=== PATIENT | female | born 2000 | race African-American/Black ===

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

== ENCOUNTER 2020-08-04 21:13 | Emergency (ER) | payer OTHER ==
[2020-08-04 21:30] VITALS: BMI 29.2
[2020-08-04] MEDS ORDERED: SODIUM CHLORIDE 0.9% 500 ML INFUS.BAG IV ONE (22:31)
[2020-08-04] MEDS ORDERED: ACTIVATED CHARCOAL 260 MG CAPSULE PO ONE (22:34)
[2020-08-04 22:37] LABS: BASO % 1.4 % (0-2.0); EOS % 4.8 % (0-4.5); HEMATOCRIT 36.8 % (32.4-45.2); HEMOGLOBIN 12.2 GM/dL (10.7-15.3); LYMPH % 32.1 % (8-40); MCH 26.6 pg (25.7-33.7); MCHC 33.3 g/dl (32.0-36.0); MEAN CELL VOLUME 79.9 fl (80-96); MEAN PLT VOLUME 8.7 fl (7.5-11.1); MONO % 7.5 % (3.8-10.2); NEUT % 54.2 % (42.8-82.8); PLATELET COUNT 320 K/MM3 (134-434); RBC 4.61 M/mm3 (3.60-5.2); RDW 13.5 % (11.6-15.6); WHITE BLOOD COUNT 7.4 K/mm3 (4.0-10.0)
[2020-08-04] MEDS ORDERED: CHARCOAL/SORBITOL SOLUTION 25 GM/120 ML BTL ONE (22:48)
[2020-08-04] MEDS ORDERED: CHARCOAL/SORBITOL SOLUTION 25 GM/120 ML BTL PO ONE (22:49)
[2020-08-04 22:51] LABS: INR 1.2 (0.83-1.09); PROTHROMBIN TIME (PATIENT) 14.5 SEC (9.7-13.0)
[2020-08-04 22:53] LABS: CHLORIDE 107 mmol/L (98-107); SODIUM 140 mmol/L (136-145)
[2020-08-04 22:54] LABS: ACTIVATED PTT 30.7 SECONDS (25.2-36.5)
[2020-08-04 22:55] LABS: ALBUMIN 4.1 g/dl (3.4-5.0); ANION GAP 11 MMOL/L (8-16); CALCIUM 9.6 mg/dL (8.5-10.1); CO2 21 mmol/L (21-32); MAGNESIUM 2.1 mg/dL (1.8-2.4)
[2020-08-04 22:56] LABS: GLUCOSE,RANDOM 79 mg/dL (74-106)
[2020-08-04 22:58] LABS: CREATININE 0.6 mg/dL (0.55-1.3); SGOT/AST 12 U/L (15-37); SGPT/ALT 14 U/L (13-61)
[2020-08-04 23:00] LABS: BILIRUBIN,TOTAL 0.3 mg/dL (0.2-1); TOT PROT 7.7 g/dl (6.4-8.2)
[2020-08-04 23:01] LABS: ALK PHOS 60 U/L (45-117)
[2020-08-04] MEDS ORDERED: ONDANSETRON 4 MG/2 ML VIAL IVPUSH ONE ×2 (23:02→23:03)
[2020-08-04] MEDS ORDERED: ONDANSETRON 4 MG/2 ML VIAL ONE (23:03)
[2020-08-05 02:45] LABS: POTASSIUM 3.6 mmol/L (3.5-5.1)
[2020-08-05 02:46] LABS: BLOOD UREA NITROGEN 7.9 mg/dL (7-18); CALCIUM 9.2 mg/dL (8.5-10.1)
[2020-08-05 02:50] LABS: CREATININE 0.5 mg/dL (0.55-1.3)
[2020-08-05 03:26] LABS: VENOUS O2 SATURATION 63.7 % (70-80); VENOUS PCO2 39.8 mmHg (38-52); VENOUS PH 7.363 (7.310-7.410)
[2020-08-05 07:13] VITALS: BP 102/62; PULSE 85; TEMP 98.2
[2020-08-05 08:31] LABS: PH,URINE 5.5 (5.0-8.0); URINE APPEARANCE CLEAR; URINE BILIRUBIN NEGATIVE (NEGATIVE); URINE COLOR YELLOW; URINE GLUCOSE (UA) NEGATIVE (NEGATIVE); URINE KETONE 1+ (NEGATIVE); URINE LEUK ESTERASE NEGATIVE (NEGATIVE); URINE NITRITE NEGATIVE (NEGATIVE); URINE PROTEIN NEGATIVE (NEGATIVE)
[2020-08-05 08:36] LABS: URINE BARBITURATES NEGATIVE ng/ml (CUTOFF=200)
[2020-08-05 08:37] LABS: METHADONE, UR NEGATIVE ng/ml (CUTOFF=300); PHENCYCLIDINE,URINE NEGATIVE ng/ml (CUTOFF=25)
[2020-08-05 08:38] LABS: COCAINE, UR NEGATIVE ng/ml (CUTOFF=300); OPIATES, URI NEGATIVE ng/ml (CUTOFF=300); URINE AMPHETAMINES NEGATIVE ng/ml (CUTOFF=500); URINE BENZODIAZEPINES NEGATIVE ng/ml (CUTOFF=200)
[2020-08-05 08:39] LABS: EPI CELLS >36 /uL (0-25.1); HYALINE CASTS 4 /uL (0-3.1); URINE BACTERIA 711 /uL (0-1359); URINE RBC 9 /uL (0-23.9); URINE WBC 24 /uL (0-25.8)
== END 2020-08-05 12:14 | disposition home or self-care (01) ==
LOC: JER 21:13
PROC: 3E033GC Introduction of Other Therapeutic Substance into Peripheral Vein, Percutaneous Approach (ICD-10-PCS; principal; 2020-08-04)
DX: T50.902A Poisoning by unspecified drugs, medicaments and biological substances, intentional self-harm, initial encounter (principal); R45.851 Suicidal ideations
CPT/HCPCS: 36415; 76801-TC; 80048; 80053; 80307; 81003; 82803; 83735; 84443; 84702; 84703; 85025; 85610; 85730; 93005; 93010; 99285-25; C9803; U0003

== ENCOUNTER 2020-09-16 21:48 | Emergency (ER) | payer OTHER ==
[2020-09-16 22:19] VITALS: TEMP 98.4; BMI 32.3
[2020-09-16] MEDS ORDERED: SODIUM CHLORIDE 1,000 ML IV ONE (22:21)
[2020-09-16 22:37] LABS: BASO % 0.8 % (0-2.0); EOS % 8.2 % (0-4.5); HEMOGLOBIN 11.5 GM/dL (10.7-15.3); MCH 26.5 pg (25.7-33.7); MCHC 32.9 g/dl (32.0-36.0); MEAN CELL VOLUME 80.7 fl (80-96); MEAN PLT VOLUME 8.7 fl (7.5-11.1); MONO % 6.8 % (3.8-10.2); NEUT % 60.2 % (42.8-82.8); PLATELET COUNT 334 K/MM3 (134-434); RBC 4.33 M/mm3 (3.60-5.2); RDW 14.3 % (11.6-15.6); WHITE BLOOD COUNT 5.9 K/mm3 (4.0-10.0)
[2020-09-16 22:45] LABS: VENOUS BASE EXCESS -1.6 mmol/L (-2-2); VENOUS O2 SATURATION 89.6 % (70-80); VENOUS PH 7.405 (7.310-7.410)
[2020-09-16 22:47] LABS: CHLORIDE 107 mmol/L (98-107); POTASSIUM 3.5 mmol/L (3.5-5.1); SODIUM 139 mmol/L (136-145)
[2020-09-16 22:48] LABS: CALCIUM 9.2 mg/dL (8.5-10.1)
[2020-09-16 22:49] LABS: ALBUMIN 3.8 g/dl (3.4-5.0); ANION GAP 7 MMOL/L (8-16); BLOOD UREA NITROGEN 11.6 mg/dL (7-18); CO2 24 mmol/L (21-32); GLUCOSE,RANDOM 129 mg/dL (74-106); MAGNESIUM 2.3 mg/dL (1.8-2.4)
[2020-09-16 22:52] LABS: CREATININE 0.8 mg/dL (0.55-1.3); SGOT/AST 12 U/L (15-37); SGPT/ALT 16 U/L (13-61)
[2020-09-16 22:53] LABS: BILIRUBIN,TOTAL 0.2 mg/dL (0.2-1)
[2020-09-16 22:54] LABS: ALK PHOS 54 U/L (45-117); TOT PROT 7.5 g/dl (6.4-8.2)
[2020-09-17 02:36] LABS: PHENCYCLIDINE,URINE NEGATIVE ng/ml (CUTOFF=25)
[2020-09-17 02:41] LABS: EPI CELLS >36 /uL (0-25.1); HYALINE CASTS 3 /uL (0-3.1); URINE APPEARANCE CLEAR; URINE BACTERIA 567 /uL (0-1359); URINE BILIRUBIN NEGATIVE (NEGATIVE); URINE COLOR YELLOW; URINE GLUCOSE (UA) NEGATIVE (NEGATIVE); URINE KETONE NEGATIVE (NEGATIVE); URINE LEUK ESTERASE TRACE (NEGATIVE); URINE NITRITE NEGATIVE (NEGATIVE); URINE PROTEIN NEGATIVE (NEGATIVE); URINE RBC 3 /uL (0-23.9); URINE WBC 48 /uL (0-25.8)
[2020-09-17 02:46] LABS: COCAINE, UR NEGATIVE ng/ml (CUTOFF=300); METHADONE, UR NEGATIVE ng/ml (CUTOFF=300); OPIATES, URI NEGATIVE ng/ml (CUTOFF=300); URINE AMPHETAMINES NEGATIVE ng/ml (CUTOFF=500); URINE BARBITURATES NEGATIVE ng/ml (CUTOFF=200); URINE BENZODIAZEPINES POSITIVE ng/ml (CUTOFF=200)
[2020-09-17 05:00] VITALS: BP 114/75; PULSE 86
== END 2020-09-17 05:07 | disposition home or self-care (01) ==
LOC: JER 21:48
PROC: 3E0337Z Introduction of Electrolytic and Water Balance Substance into Peripheral Vein, Percutaneous Approach (ICD-10-PCS; principal; 2020-09-16)
DX: R25.1 Tremor, unspecified (principal); R55 Syncope and collapse
CPT/HCPCS: 36415; 70450-TC; 76801-TC; 80053; 80307; 81003; 82803; 82962; 83735; 84702; 84703; 85025; 86850; 86900; 86901; 93005; 93010; 99285-25; C9803; U0003; U0005

== ENCOUNTER 2020-10-01 04:48 | Emergency (ER) | payer OTHER ==
[2020-10-01 05:05] VITALS: BMI 26.6
[2020-10-01] MEDS ORDERED: levETIRAcetam 500 MG/5 ML INJECTION VIAL IVPB ONE ×2 (05:39→05:50)
[2020-10-01 05:51] LABS: HEMATOCRIT 32.8 % (32.4-45.2); LYMPH % 36.9 % (8-40); MCH 26.9 pg (25.7-33.7); MCHC 33.7 g/dl (32.0-36.0); MEAN CELL VOLUME 79.8 fl (80-96); MEAN PLT VOLUME 7.8 fl (7.5-11.1); NEUT % 41.1 % (42.8-82.8); PLATELET COUNT 322 K/MM3 (134-434); RBC 4.11 M/mm3 (3.60-5.2); RDW 13.8 % (11.6-15.6); WHITE BLOOD COUNT 6.4 K/mm3 (4.0-10.0)
[2020-10-01 06:10] LABS: CHLORIDE 105 mmol/L (98-107); SODIUM 138 mmol/L (136-145)
[2020-10-01 06:14] LABS: ALBUMIN 3.4 g/dl (3.4-5.0); ANION GAP 5 MMOL/L (8-16); BLOOD UREA NITROGEN 14.6 mg/dL (7-18); CO2 28 mmol/L (21-32); GLUCOSE,RANDOM 102 mg/dL (74-106)
[2020-10-01 06:17] LABS: BILIRUBIN,TOTAL 0.2 mg/dL (0.2-1); CREATININE 0.7 mg/dL (0.55-1.3); SGOT/AST 10 U/L (15-37); SGPT/ALT 15 U/L (13-61); TOT PROT 6.8 g/dl (6.4-8.2)
[2020-10-01 06:19] LABS: ALK PHOS 60 U/L (45-117)
[2020-10-01] MEDS ORDERED: MAGNESIUM SULF 50% (8.12 MEQ/2 ML-1 GM VIAL) IVPB ONE (06:23)
[2020-10-01] MEDS ORDERED: POTASSIUM CHLORIDE TABS 20 MEQ TABLET.ER (FP) PO ONE ×2 (06:23→10:04)
[2020-10-01] MEDS ORDERED: MAGNESIUM SULFATE IN WATER 2 GM/50 ML IVPB IVPB ONE (06:34)
[2020-10-01] MEDS ORDERED: DIVALPROEX SODIUM 125 MG TABLET E.C. ONE (10:04)
[2020-10-01] MEDS ORDERED: VALPROATE SODIUM 250 MG/5 ML UNIT DOSE CUP PO ONE (10:45)
[2020-10-01 10:48] VITALS: BP 103/50; PULSE 78; TEMP 98
== END 2020-10-01 10:35 | disposition home or self-care (01) ==
LOC: JER 04:48
PROC: 3E033GC Introduction of Other Therapeutic Substance into Peripheral Vein, Percutaneous Approach (ICD-10-PCS; principal; 2020-10-01)
PROC: 3E033GC Introduction of Other Therapeutic Substance into Peripheral Vein, Percutaneous Approach (ICD-10-PCS; 2020-10-01)
DX: G40.89 Other seizures (principal)
CPT/HCPCS: 36415; 70450-TC; 80053; 80307; 84702; 85025; 93005; 93010; 99285-25

== ENCOUNTER 2020-10-18 13:26 | Emergency (ER) | payer OTHER ==
[2020-10-18 13:43] VITALS: BP 140/87; PULSE 116; TEMP 98.7; BMI 33.3
[2020-10-18] MEDS ORDERED: DEXAMETHASONE LIQUID 0.5 MG/5 ML PO ONE (14:13)
[2020-10-18] MEDS ORDERED: PENICILLIN G BENZATHINE 1,200,000 UNIT/2 ML PFS IM ONE ×2 (14:13→14:42)
[2020-10-18] MEDS ORDERED: DEXAMETHASONE SOD PHOSPHATE 10 MG/1 ML VIAL ONE (14:42)
== END 2020-10-18 15:40 | disposition home or self-care (01) ==
LOC: JER 13:26
DX: J02.9 Acute pharyngitis, unspecified (principal)
CPT/HCPCS: 99284-25

== ENCOUNTER 2021-08-21 13:16 | Emergency (ER) | payer OTHER ==
[2021-08-21 13:28] VITALS: BP 114/65; PULSE 107; TEMP 97.8; BMI 23.9
[2021-08-21] MEDS ORDERED: ACETAMINOPHEN 500 MG TABLET (FP) PO ONE (14:04)
[2021-08-21] MEDS ORDERED: ACETAMINOPHEN 500 MG TABLET (FP) ONE (14:06)
[2021-08-21 15:35] LABS: HCG,QUALITATIVE URINE Negative
[2021-08-21 15:37] LABS: EPI CELLS 20 /uL (0-25.1); HYALINE CASTS 17 /uL (0-3.1); PH,URINE 5.5 (5.0-8.0); URINE APPEARANCE CLOUDY; URINE BACTERIA >9,000 /uL (0-1359); URINE BILIRUBIN NEGATIVE (NEGATIVE); URINE COLOR YELLOW; URINE GLUCOSE (UA) NEGATIVE (NEGATIVE); URINE KETONE TRACE (NEGATIVE); URINE LEUK ESTERASE 1+ (NEGATIVE); URINE NITRITE NEGATIVE (NEGATIVE); URINE PROTEIN TRACE (NEGATIVE); URINE RBC 13 /uL (0-23.9); URINE UROBILINOGEN 0.2 mg/dL (0.2-1.0); URINE WBC 315 /uL (0-25.8)
== END 2021-08-21 17:18 | disposition home or self-care (01) ==
LOC: JERFT 13:16
DX: N30.90 Cystitis, unspecified without hematuria (principal)
CPT/HCPCS: 36415; 76830-TC; 81003; 84703; 87086; 87186; 87491; 87591; 99284-25

== ENCOUNTER 2022-08-11 08:27 | Emergency (ER) | payer OTHER ==
[2022-08-11 09:04] VITALS: BMI 27.4
[2022-08-11] MEDS ORDERED: ONDANSETRON 4 MG TABLET PO ONE ×2 (09:46→09:58)
[2022-08-11] MEDS ORDERED: predniSONE 20 MG TABLET (UD) PO ONE (09:47)
[2022-08-11] MEDS ORDERED: ALBUTEROL SO4 2.5/IPRATROPIUM 0.5 INH SOL 3 ML VIAL.NEB. NEB ONE ×2 (09:47→09:58)
[2022-08-11] MEDS ORDERED: predniSONE 20 MG TABLET (UD) ONE (09:58)
[2022-08-11] MEDS ORDERED: ACETAMINOPHEN 500 MG TABLET (FP) PO ONE (11:01)
[2022-08-11] MEDS ORDERED: ACETAMINOPHEN 500 MG TABLET (FP) ONE (11:18)
[2022-08-11 11:38] VITALS: BP 123/78; PULSE 99; RESP 20; TEMP 98.7
== END 2022-08-11 11:38 | disposition home or self-care (01) ==
LOC: JER 08:27
PROC: 3E0F7GC Introduction of Other Therapeutic Substance into Respiratory Tract, Via Natural or Artificial Opening (ICD-10-PCS; principal; 2022-08-11)
DX: J45.901 Unspecified asthma with (acute) exacerbation (principal); R11.0 Nausea
CPT/HCPCS: 71046-TC-FY; 99283-25

== ENCOUNTER 2023-01-18 01:00 | Emergency (ER) | payer OTHER ==
[2023-01-18 01:09] VITALS: BMI 32.9
[2023-01-18] MEDS ORDERED: DEXAMETHASONE SOD PHOSPHATE 10 MG/1 ML VIAL PO ONE (02:00)
[2023-01-18] MEDS ORDERED: ACETAMINOPHEN 325 MG TABLET (FP) PO ONE (02:00)
[2023-01-18] MEDS ORDERED: DEXAMETHASONE SOD PHOSPHATE 10 MG/1 ML VIAL ONE (02:21)
[2023-01-18] MEDS ORDERED: ACETAMINOPHEN 325 MG TABLET (FP) ONE (02:22)
[2023-01-18] MEDS ORDERED: LACTATED RINGERS SOLUTION 1000 ML INFUS.BAG IV ONE (02:26)
[2023-01-18 02:44] LABS: THROAT:GRP A STREP NOT DETECTED (NOTDETECTED)
[2023-01-18 03:35] LABS: EOS % 11.5 % (0-4.5); HEMATOCRIT 37.9 % (32.4-45.2); HEMOGLOBIN 12.6 GM/dL (10.7-15.3); LYMPH % 49.6 % (8-40); MCH 26.6 pg (25.7-33.7); MCHC 33.3 g/dl (32.0-36.0); MEAN PLT VOLUME 8.4 fl (7.5-11.1); MONO % 10.2 % (3.8-10.2); NEUT % 27.7 % (42.8-82.8); PLATELET COUNT 353 10^3/uL (134-434); RBC 4.74 M/mm3 (3.60-5.2); RDW 14.2 % (11.6-15.6); WHITE BLOOD COUNT 7.5 K/mm3 (4.0-10.0)
[2023-01-18 03:43] LABS: POTASSIUM 5.3 mmol/L (3.5-5.1)
[2023-01-18 03:45] LABS: BLOOD UREA NITROGEN 16.3 mg/dL (7-18); CALCIUM 8.6 mg/dL (8.5-10.1)
[2023-01-18 03:46] LABS: ALBUMIN 3.6 g/dl (3.4-5.0)
[2023-01-18 03:48] LABS: CREATININE 0.7 mg/dL (0.55-1.3)
[2023-01-18 03:50] LABS: TOT PROT 7.3 g/dl (6.4-8.2)
[2023-01-18 04:02] LABS: BILIRUBIN,TOTAL 0.2 mg/dL (0.2-1)
[2023-01-18 06:22] VITALS: BP 113/60; PULSE 86; RESP 18; TEMP 98.7
== END 2023-01-18 06:21 | disposition home or self-care (01) ==
LOC: JER 01:00
DX: R13.10 Dysphagia, unspecified (principal)
CPT/HCPCS: 0241U-QW; 36415; 70491-TC; 80053; 84703; 85025; 87651; 99285-25; J1100; Q9967

== ENCOUNTER 2023-10-09 11:48 | Inpatient (IN) | payer OTHER ==
[2023-10-09] MEDS ORDERED: predniSONE 20 MG TABLET (UD) ONE (12:45)
[2023-10-09] MEDS ORDERED: ALBUTEROL SO4 2.5/IPRATROPIUM 0.5 INH SOL 3 ML VIAL.NEB. NEB ONE (12:45)
[2023-10-09] MEDS: predniSONE 20 MG TABLET (UD) PO ONE (12:52)
[2023-10-09] MEDS: ALBUTEROL SO4 2.5/IPRATROPIUM 0.5 INH SOL 3 ML VIAL.NEB. NEB SCH (12:52)
[2023-10-09] MEDS ORDERED: MAGNESIUM SULFATE IN WATER 2 GM/50 ML IVPB IVPB ONE (13:31)
[2023-10-09] MEDS: ALBUTEROL SO4 0.083% IH SOL 2.5 MG/3 ML VIAL.NEB. NEB SCH (13:50)
[2023-10-09] MEDS: ACETAMINOPHEN 1000 MG/100 ML BAG IVPB ONE (13:50)
[2023-10-09] MEDS: MAGNESIUM SULFATE IN WATER 2 GM/50 ML IVPB IVPB ONE (13:50)
[2023-10-09] MEDS ORDERED: ACETAMINOPHEN INJECTION 100 ML IVPB ONE (13:53)
[2023-10-09 14:03] LABS: BASO % 0.8 % (0-2.0); HEMOGLOBIN 14.7 GM/dL (10.7-15.3); LYMPH % 20.3 % (8-40); MCH 26.3 pg (25.7-33.7); MCHC 32.6 g/dl (32.0-36.0); MEAN CELL VOLUME 80.6 fl (80-96); MONO % 5.8 % (3.8-10.2); NEUT % 56.1 % (42.8-82.8); PLATELET COUNT 306 10^3/uL (134-434); RBC 5.58 M/mm3 (3.60-5.2); RDW 13.9 % (11.6-15.6); WHITE BLOOD COUNT 8.1 K/mm3 (4.0-10.0)
[2023-10-09 14:22] LABS: POTASSIUM 3.5 mmol/L (3.5-5.1)
[2023-10-09 14:24] LABS: CALCIUM 9.5 mg/dL (8.5-10.1)
[2023-10-09 14:25] LABS: ALBUMIN 4.2 g/dl (3.4-5.0); BLOOD UREA NITROGEN 11.7 mg/dL (7-18); MAGNESIUM 2.2 mg/dL (1.8-2.4)
[2023-10-09 14:28] LABS: CREATININE 0.7 mg/dL (0.55-1.3)
[2023-10-09 14:29] LABS: BILIRUBIN,TOTAL 0.4 mg/dL (0.2-1); TOT PROT 8.1 g/dl (6.4-8.2)
[2023-10-09] MEDS: SODIUM CHLORIDE 0.9% 500 ML INFUS.BAG IV ONE (14:37)
[2023-10-09] MEDS ORDERED: ALBUTEROL SO4 0.083% IH SOL 2.5 MG/3 ML VIAL.NEB. NEB ONE (14:52)
[2023-10-09] MEDS: ALBUTEROL SO4 0.083% IH SOL 2.5 MG/3 ML VIAL.NEB. NEB ONE (14:54)
[2023-10-09] MEDS ORDERED: hydrOXYzine PAMOATE 25 MG CAPSULE (FP) PO ONE (15:50)
[2023-10-09] MEDS: hydrOXYzine PAMOATE 25 MG CAPSULE (FP) PO ONE (15:54)
[2023-10-09] MEDS ORDERED: ALBUTEROL SO4 0.083% IH SOL 2.5 MG/3 ML VIAL.NEB. NEB PRN (18:32)
[2023-10-09 20:44] VITALS: BMI 30.7
[2023-10-09] MEDS: levETIRAcetam 500 MG TABLET (FP) PO SCH (21:13)
[2023-10-09] MEDS: methylPREDNISolone NA SUCC 40 MG/1 ML VIAL IVPUSH SCH (21:13)
[2023-10-09] MEDS: SODIUM CHLORIDE 1,000 ML IV SCH (21:14)
[2023-10-09] MEDS: LEVALBUTEROL HCL 0.63 MG/3 ML VIAL.NEB. IH PRN (21:46)
[2023-10-09] MEDS: FLUTICASONE/SALMETEROL (WIXELA) 100 MCG/50 MCG DISKUS IH SCH (22:35)
[2023-10-10 08:30] LABS: HEMATOCRIT 40.5 % (32.4-45.2); HEMOGLOBIN 13.4 GM/dL (10.7-15.3); MCH 26.6 pg (25.7-33.7); MCHC 33.1 g/dl (32.0-36.0); MEAN CELL VOLUME 80.5 fl (80-96); MEAN PLT VOLUME 8.3 fl (7.5-11.1); PLATELET COUNT 304 10^3/uL (134-434); RBC 5.04 M/mm3 (3.60-5.2); RDW 14.2 % (11.6-15.6); WHITE BLOOD COUNT 5.6 K/mm3 (4.0-10.0)
[2023-10-10 08:32] LABS: POTASSIUM 4.6 mmol/L (3.5-5.1)
[2023-10-10 09:07] LABS: BILIRUBIN,TOTAL 0.3 mg/dL (0.2-1)
[2023-10-10 09:09] LABS: PHOSPHOROUS 3.9 mg/dL (2.5-4.9)
[2023-10-10 09:10] LABS: ALBUMIN 3.7 g/dl (3.4-5.0); BLOOD UREA NITROGEN 8.7 mg/dL (7-18); CALCIUM 9.2 mg/dL (8.5-10.1); CREATININE 0.5 mg/dL (0.55-1.3); MAGNESIUM 2.7 mg/dL (1.8-2.4)
[2023-10-10 09:11] LABS: TOT PROT 7.5 g/dl (6.4-8.2)
[2023-10-10] MEDS: MONTELUKAST NA 10 MG TABLET PO SCH (09:33)
[2023-10-10] MEDS: ENOXAPARIN NA (PORCINE) 40 MG/0.4 ML DISP.SYRIN SQ SCH (09:40)
[2023-10-11 09:13] LABS: HEMATOCRIT 41.2 % (32.4-45.2); HEMOGLOBIN 13.3 GM/dL (10.7-15.3); MCH 26.1 pg (25.7-33.7); MCHC 32.3 g/dl (32.0-36.0); MEAN CELL VOLUME 80.9 fl (80-96); MEAN PLT VOLUME 8.3 fl (7.5-11.1); PLATELET COUNT 312 10^3/uL (134-434); RDW 14.1 % (11.6-15.6); WHITE BLOOD COUNT 9.4 K/mm3 (4.0-10.0)
[2023-10-11] MEDS: guaiFENesin/D-METHORPHAN HB 10 ML UNIT-DOSE CUPS PO ONE (09:13)
[2023-10-11] MEDS: methylPREDNISolone NA SUCC 40 MG/1 ML VIAL IVPUSH SCH (09:13)
[2023-10-11 09:26] LABS: POTASSIUM 3.8 mmol/L (3.5-5.1)
[2023-10-11 09:27] LABS: CALCIUM 9.1 mg/dL (8.5-10.1)
[2023-10-11 09:28] LABS: BLOOD UREA NITROGEN 11.5 mg/dL (7-18)
[2023-10-11 09:31] LABS: CREATININE 0.7 mg/dL (0.55-1.3)
[2023-10-11] MEDS: AZITHROMYCIN 250 MG TABLET PO ONE (13:10)
[2023-10-11] MEDS: guaiFENesin/D-METHORPHAN HB 10 ML UNIT-DOSE CUPS PO PRN (13:20)
[2023-10-12] MEDS: AZITHROMYCIN 250 MG TABLET PO SCH (09:33)
[2023-10-12] MEDS: methylPREDNISolone NA SUCC 40 MG/1 ML VIAL IVPUSH ONE (09:35)
[2023-10-12] MEDS: ACETAMINOPHEN 325 MG TABLET (FP) PO PRN (09:43)
[2023-10-12] MEDS: ALBUTEROL SO4 2.5/IPRATROPIUM 0.5 INH SOL 3 ML VIAL.NEB. NEB SCH (11:23)
[2023-10-12] MEDS ORDERED: methylPREDNISolone NA SUCC 40 MG/1 ML VIAL IVPUSH ONE (12:00)
[2023-10-12] MEDS: methylPREDNISolone NA SUCC 40 MG/1 ML VIAL IVPUSH SCH (21:23)
[2023-10-13 04:08] VITALS: TEMP 98.3
[2023-10-13 09:23] LABS: HEMATOCRIT 39.7 % (32.4-45.2); HEMOGLOBIN 13.1 GM/dL (10.7-15.3); MCH 26.9 pg (25.7-33.7); MCHC 33.1 g/dl (32.0-36.0); MEAN CELL VOLUME 81.2 fl (80-96); PLATELET COUNT 310 10^3/uL (134-434); RBC 4.89 M/mm3 (3.60-5.2); RDW 13.9 % (11.6-15.6); WHITE BLOOD COUNT 8.7 K/mm3 (4.0-10.0)
[2023-10-13 09:33] VITALS: BP 120/67; PULSE 97; RESP 20
[2023-10-14] MEDS ORDERED: predniSONE 20 MG TABLET (UD) PO SCH (10:00)
== END 2023-10-13 13:00 | disposition home or self-care (01) | DRG 141 ==
LOC: JER 11:48 → JERBED 16:31 → J6S 19:55 → OBSVTOIN 10-11 15:29
PROVIDERS: ADMIT Internal Medicine; ATTEND Internal Medicine
DX: J45.901 Unspecified asthma with (acute) exacerbation (principal); G40.909 Epilepsy, unspecified, not intractable, without status epilepticus; R00.0 Tachycardia, unspecified; R11.2 Nausea with vomiting, unspecified; J20.9 Acute bronchitis, unspecified; J06.9 Acute upper respiratory infection, unspecified; R73.9 Hyperglycemia, unspecified; F12.90 Cannabis use, unspecified, uncomplicated; F32.A Depression, unspecified
CPT/HCPCS: 0241U-QW; 36415; 71045-TC-FY; 71250-TC; 80048; 80053; 83735; 84100; 84703; 85025; 85027; 87899; 93005; 93010; 94010; 94640; 99285-25; G0378; J0131

== ENCOUNTER 2024-09-16 08:44 | Observation (INO) | payer OTHER ==
[2024-09-16 08:49] VITALS: BMI 34.5
[2024-09-16] MEDS ORDERED: IPRATROPIUM BR 0.02% 0.5 MG/2.5 ML VIAL.NEB. NEB ONE ×2 (09:09→10:06)
[2024-09-16] MEDS ORDERED: methylPREDNISolone NA SUCC 125 MG/2 ML VIAL ONE (09:17)
[2024-09-16] MEDS ORDERED: ALBUTEROL SO4 0.083% IH SOL 2.5 MG/3 ML VIAL.NEB. NEB ONE ×5 (09:17→13:14)
[2024-09-16] MEDS: methylPREDNISolone NA SUCC 125 MG/2 ML VIAL IVPUSH ONE (09:25)
[2024-09-16] MEDS: ALBUTEROL SO4 2.5/IPRATROPIUM 0.5 INH SOL 3 ML VIAL.NEB. NEB ONE (09:25)
[2024-09-16] MEDS ORDERED: MAGNESIUM SULFATE IN WATER 2 GM/50 ML IVPB IVPB ONE (09:29)
[2024-09-16] MEDS: MAGNESIUM SULF 50% (8.12 MEQ/2 ML-1 GM VIAL) IVPB ONE (09:38)
[2024-09-16] MEDS ORDERED: ACETAMINOPHEN INJECTION 100 ML ONE (10:17)
[2024-09-16] MEDS: ACETAMINOPHEN 1000 MG/100 ML BAG IVPB ONE (10:22)
[2024-09-16 10:30] LABS: HEMATOCRIT 44.5 % (34.1-44.9); HEMOGLOBIN 14.1 g/dL (11.2-15.7); MCHC 31.7 g/dl (32.2-35.5); MEAN CELL VOLUME 82.1 fl (79.4-94.8); RDW 13.5 % (12.1-16.5)
[2024-09-16 11:15] LABS: BASOPHILS # 0.18 x10^3/uL (0.01-0.08); EOSINOPHILS # 1.58 x10^3/uL (0.04-0.36); MONOCYTE # 0.25 x10^3/uL (0.24-0.86)
[2024-09-16 11:17] LABS: POTASSIUM 3.7 mmol/L (3.5-5.1)
[2024-09-16 11:19] LABS: ALBUMIN 4.1 g/dl (3.4-5.0); BLOOD UREA NITROGEN 9.9 mg/dL (7-18); CALCIUM 9.2 mg/dL (8.5-10.1)
[2024-09-16 11:22] LABS: CREATININE 0.6 mg/dL (0.55-1.3)
[2024-09-16 11:23] LABS: BILIRUBIN,TOTAL 0.5 mg/dL (0.2-1)
[2024-09-16 12:38] LABS: HCV DIAGNOSTIC IN-HOUSE W/RFLX NON-REACTIVE (NONREACTIVE)
[2024-09-16 12:40] LABS: HIV INTERPRETATION NEGATIVE (NEGATIVE)
[2024-09-16] MEDS: ALBUTEROL SO4 0.083% IH SOL 2.5 MG/3 ML VIAL.NEB. NEB ONE (13:15)
[2024-09-16] MEDS ORDERED: oxyCODONE HCL 5 MG TABLET ONE (13:37)
[2024-09-16] MEDS: oxyCODONE HCL 5 MG TABLET PO ONE (13:41)
[2024-09-16] MEDS: IPRATROPIUM BR 0.02% 0.5 MG/2.5 ML VIAL.NEB. NEB ONE (14:00)
[2024-09-16] MEDS ORDERED: LEVALBUTEROL HCL 0.31 MG/3 ML VIAL.NEB IH PRN (14:44)
[2024-09-16 15:52] LABS: ABSOLUTE IMMATURE GRANULOCYTES 0.02 x10^3/uL (0.0-0.031); EOSINOPHIL % 17.4 % (0.7-5.8); MEAN PLT VOLUME 10.8 fl (9.4-12.3); MONOCYTE % 6.5 % (4.7-12.5); PLATELET COUNT 338 x10^3/uL (182-369)
[2024-09-16] MEDS ORDERED: ALBUTEROL SO4 2.5/IPRATROPIUM 0.5 INH SOL 3 ML VIAL.NEB. NEB ONE (16:15)
[2024-09-16] MEDS: ALBUTEROL SO4 2.5/IPRATROPIUM 0.5 INH SOL 3 ML VIAL.NEB. NEB SCH (16:18)
[2024-09-16] MEDS: SODIUM CHLORIDE 1,000 ML IV STA (18:17)
[2024-09-16] MEDS ORDERED: LEVALBUTEROL HCL 0.31 MG/3 ML VIAL.NEB IH SCH (20:00)
[2024-09-16] MEDS ORDERED: IPRATROPIUM BR 0.02% 0.5 MG/2.5 ML VIAL.NEB. NEB SCH (20:00)
[2024-09-16] MEDS: BUDESONIDE/FORMETEROL FUMARATE 160/4.5 mcg INHALER IH SCH (21:48)
[2024-09-16] MEDS: methylPREDNISolone NA SUCC 40 MG/1 ML VIAL IVPUSH SCH (21:50)
[2024-09-16] MEDS: levETIRAcetam 500 MG TABLET (FP) PO SCH (21:50)
[2024-09-17] MEDS: TRIMETHOBENZAMIDE HCL 200MG/2ML INJ IM ONE (05:31)
[2024-09-17] MEDS ORDERED: ALBUTEROL SO4 2.5/IPRATROPIUM 0.5 INH SOL 3 ML VIAL.NEB. NEB PRN (05:49)
[2024-09-17 09:01] LABS: ABSOLUTE IMMATURE GRANULOCYTES 0.02 x10^3/uL (0.0-0.031); BASOPHILS # 0.01 x10^3/uL (0.01-0.08); HEMATOCRIT 42.5 % (34.1-44.9); HEMOGLOBIN 13.7 g/dL (11.2-15.7); MCHC 32.2 g/dl (32.2-35.5); MEAN CELL VOLUME 81.9 fl (79.4-94.8); MEAN PLT VOLUME 10.3 fl (9.4-12.3); MONOCYTE # 0.17 x10^3/uL (0.24-0.86); MONOCYTE % 3.1 % (4.7-12.5); PLATELET COUNT 366 x10^3/uL (182-369)
[2024-09-17 09:26] LABS: POTASSIUM 4.4 mmol/L (3.5-5.1)
[2024-09-17 09:29] LABS: BLOOD UREA NITROGEN 10.1 mg/dL (7-18); CALCIUM 9.6 mg/dL (8.5-10.1)
[2024-09-17 09:30] LABS: MAGNESIUM 2.6 mg/dL (1.8-2.4)
[2024-09-17] MEDS: ENOXAPARIN NA (PORCINE) 40 MG/0.4 ML DISP.SYRIN SQ SCH (09:32)
[2024-09-17 09:33] LABS: CREATININE 0.6 mg/dL (0.55-1.3); PHOSPHOROUS 4.2 mg/dL (2.5-4.9)
[2024-09-17] MEDS ORDERED: methylPREDNISolone NA SUCC 40 MG/1 ML VIAL IVPUSH SCH (10:00)
[2024-09-17] MEDS: MONTELUKAST NA 10 MG TABLET PO SCH (21:11)
[2024-09-18 08:52] LABS: ABSOLUTE IMMATURE GRANULOCYTES 0.03 x10^3/uL (0.0-0.031); BASOPHILS # 0.01 x10^3/uL (0.01-0.08); HEMATOCRIT 44.6 % (34.1-44.9); HEMOGLOBIN 13.8 g/dL (11.2-15.7); MCHC 30.9 g/dl (32.2-35.5); MEAN CELL VOLUME 81.8 fl (79.4-94.8); MEAN PLT VOLUME 10.2 fl (9.4-12.3); MONOCYTE # 0.36 x10^3/uL (0.24-0.86); MONOCYTE % 4.6 % (4.7-12.5); PLATELET COUNT 394 x10^3/uL (182-369); RDW 14.2 % (12.1-16.5)
[2024-09-18 09:16] LABS: BLOOD UREA NITROGEN 14.1 mg/dL (7-18)
[2024-09-18 09:17] LABS: ALBUMIN 3.8 g/dl (3.4-5.0)
[2024-09-18 09:20] LABS: MAGNESIUM 2.4 mg/dL (1.8-2.4)
[2024-09-18 09:21] LABS: CREATININE 0.7 mg/dL (0.55-1.3)
[2024-09-18 09:22] LABS: BILIRUBIN,TOTAL 0.3 mg/dL (0.2-1); TOT PROT 7.7 g/dl (6.4-8.2)
[2024-09-18 10:15] VITALS: TEMP 97.9
[2024-09-18 16:08] VITALS: BP 120/65; PULSE 76; RESP 16
== END 2024-09-18 16:23 | disposition home or self-care (01) ==
LOC: JER 08:44 → JERBED 14:37 → J5S 16:52
PROVIDERS: ADMIT Internal Medicine
PROC: 3E033NZ Introduction of Analgesics, Hypnotics, Sedatives into Peripheral Vein, Percutaneous Approach (ICD-10-PCS; principal; 2024-09-16)
PROC: 3E0F7GC Introduction of Other Therapeutic Substance into Respiratory Tract, Via Natural or Artificial Opening (ICD-10-PCS; 2024-09-16)
PROC: 3E023GC Introduction of Other Therapeutic Substance into Muscle, Percutaneous Approach (ICD-10-PCS; 2024-09-16)
PROC: 3E033GC Introduction of Other Therapeutic Substance into Peripheral Vein, Percutaneous Approach (ICD-10-PCS; 2024-09-16)
PROC: 3E0337Z Introduction of Electrolytic and Water Balance Substance into Peripheral Vein, Percutaneous Approach (ICD-10-PCS; 2024-09-16)
DX: J45.901 Unspecified asthma with (acute) exacerbation (principal); R79.89 Other specified abnormal findings of blood chemistry; G40.909 Epilepsy, unspecified, not intractable, without status epilepticus; F32.A Depression, unspecified; D64.9 Anemia, unspecified; Z91.013 Allergy to seafood
CPT/HCPCS: 0241U-QW; 36415; 71045-TC-FY; 71275-TC; 80048; 80053; 83735; 84100; 84703; 85025; 86803; 87389; 93005; 93010; 94150; 94640; 96361; 96372; 96374; 96375; 99291; G0378; J0131; Q9967